=== PATIENT | male | born 1960 | race Caucasian/White ===

== ENCOUNTER 2017-06-06 19:58 | Emergency (ER) | payer OTHER ==
[2017-06-06] MEDS ORDERED: RINGERS SOLUTION,LACTATED 1,000 ML IV ONE (20:49)
[2017-06-06] MEDS ORDERED: ONDANSETRON HCL INJ/PF 4 MG/2 ML SDV IV ONE (20:49)
--- NOTE | 2017-06-06 20:51 | ER Document Report ---
ED Medical Screen (RME) - General Chief Complaint: Abdominal Pain Stated Complaint: POSSIBLE FOOD POISIONING Time Seen by Provider: 06/06/17 20:43 Notes: RME DISCLOSURE I have seen this patient as part of a Rapid Medical Evaluation and, if applicable, placed any initially appropriate orders. The patient will be seen and fully evaluated, including a full history and physical exam, by a provider ( in Main ED or Fast Track) when a room becomes available. 56-year-old male here with several days of abdominal pain, abdominal distention , nausea, diarrhea, and sweats. He has been trying to vomit however has had Lester fundoplication so he is unable to do so. He believes that he may have eaten something bad causing the symptoms however the rest of the family has been able to eat the same things without getting sick. He has no prior history of bowel obstruction. EXAM Moderate abdominal distention with diffuse tenderness Mild to moderate tachycardia, regular rhythm TRAVEL OUTSIDE OF THE [place] IN LAST 30 DAYS: No - Related Data Allergies/Adverse Reactions: No Known Allergies Allergy (Verified 06/06/17 20:42) Past Medical History - Social History Frequency of alcohol use: None Drug Abuse: None Endocrine Medical History: Reports: Hx Diabetes Mellitus Type 2 Renal/ Medical History: Reports: Hx Kidney Stones. Denies: Hx Peritoneal Dialysis Past Surgical History: Reports: Hx Orthopedic Surgery - Right Knee x3 Physical Exam - Vital signs Vitals: Temp Pulse Resp BP Pulse Ox 98.4 F 123 H 20 146/95 H 99 06/06/17 20:25 06/06/17 20:25 06/06/17 20:25 06/06/17 20:25 06/06/17 20:25 Course - Vital Signs Vital signs: Temp Pulse Resp BP Pulse Ox 98.4 F 123 H 20 146/95 H 99 06/06/17 20:25 06/06/17 20:25 06/06/17 20:25 06/06/17 20:25 06/06/17 20:25
[2017-06-06 21:20] LABS: ABSOLUTE EOSINOPHILS # (AUTO) 0.2 10^3/uL (0.0-0.6); ABSOLUTE LYMPHOCYTES (AUTO) 1.7 10^3/uL (0.5-4.7); ABSOLUTE MONOCYTES (AUTO) 0.8 10^3/uL (0.1-1.4); BASOPHILS % (AUTO) 0.3 % (0-2); EOSINOPHILS % (AUTO) 1.3 % (0-6); HEMATOCRIT 49.6 % (37.9-51.0); HEMOGLOBIN 16.6 g/dL (13.5-17.0); LYMPHOCYTES % (AUTO) 13.7 % (13-45); MEAN CORPUSCULAR HGB CONC 33.6 g/dL (32.0-36.0); MEAN CORPUSCULAR VOLUME 84 fl (80-97); MONOCYTES % (AUTO) 6.2 % (3-13); PLATELET COUNT 230 10^3/uL (150-450); RED BLOOD COUNT 5.94 10^6/uL (4.35-5.55); RED CELL DISTRIBUTION WIDTH 15.3 % (11.5-14.0); SEGMENTED NEUTROPHILS % (AUTO) 78.5 % (42-78); TOTAL CELLS COUNTED % (AUTO) 100 %; WHITE BLOOD COUNT 12.7 10^3/uL (4.0-10.5)
[2017-06-06 22:14] LABS: ALANINE AMINOTRANSFERASE 55 U/L (21-72); ALBUMIN 5.6 g/dL (3.5-5.0); ALKALINE PHOSPHATASE 99 U/L (38-126); ASPARTATE AMINO TRANSFERASE 42 U/L (17-59); BILIRUBIN,DIRECT 0.3 mg/dL (0.0-0.4); BILIRUBIN,TOTAL 1.2 mg/dL (0.2-1.3); BLOOD UREA NITROGEN 15 mg/dL (7-20); CALCIUM 10.8 mg/dL (8.4-10.2); GLUCOSE 213 mg/dL (75-110); LIPASE 86.7 U/L (23-300); TOTAL PROTEIN 9.7 g/dL (6.3-8.2)
[2017-06-06] MEDS ORDERED: MORPHINE SULFATE 10 MG/ML INJ IV ONE (22:15)
[2017-06-06 22:22] LABS: ANION GAP 18 (5-19); CARBON DIOXIDE 23 mmol/L (22-30); CHLORIDE 101 mmol/L (98-107); POTASSIUM 4.5 mmol/L (3.6-5.0); SODIUM 141.7 mmol/L (137-145)
[2017-06-06] MEDS ORDERED: FENTANYL CITRATE INJ/PF 100 MCG/2 ML AMPUL IV ONE (22:22)
--- NOTE | 2017-06-06 23:41 | ER Document Report ---
ED General - General Chief Complaint: Abdominal Pain Stated Complaint: POSSIBLE FOOD POISIONING Time Seen by Provider: 06/06/17 20:43 Notes: Patient is a 56-year-old male with a history of Lester fundoplication was performed 15 years ago at [facility]. This was performed some history of a large hiatal hernia. Patient says that over last several days he has had abdominal distention and has had the sensation of needing to vomit but cannot vomit because of the Lester. He says he is had some loose stools. No blood in the stool. No fevers. He denies similar symptoms in the past. Says he was told by [facility] a few years ago that he may need a revision of his Lester but he never had this performed. Patient does mention that approximately 5-6 days ago he did have an ablation of L3 through S1. He says he has had these nerve ablations in the past. He denies any loss of bowel control urinary retention following the ablation. TRAVEL OUTSIDE OF THE [place] IN LAST 30 DAYS: No - Related Data Allergies/Adverse Reactions: No Known Allergies Allergy (Verified 06/06/17 20:42) Past Medical History - Social History Smoking Status: Never Smoker Frequency of alcohol use: None Drug Abuse: None Family History: Reviewed & Not Pertinent Patient has suicidal ideation: No Patient has homicidal ideation: No Endocrine Medical History: Reports: Hx Diabetes Mellitus Type 2 Renal/ Medical History: Reports: Hx Kidney Stones. Denies: Hx Peritoneal Dialysis Past Surgical History: Reports: Hx Orthopedic Surgery - Right Knee x3 Review of Systems - Review of Systems Notes: My Normal Review Basic REVIEW OF SYSTEMS: CONSTITUTIONAL : Denies fever, chills, or sweats. Denies recent illness. EENT: Denies eye, ear, throat, or mouth pain or symptoms. Denies nasal or sinus congestion. CARDIOVASCULAR: Denies chest pain. RESPIRATORY: Denies cough, cold, or chest congestion. Denies shortness of breath, difficulty breathing, or wheezing. GASTROINTESTINAL: Diffuse abdominal pain. Nausea. GENITOURINARY: Denies difficulty urinating, painful urination, burning, frequency, or blood in urine. FEMALE GENITOURINARY: Denies vaginal bleeding, abnormal or irregular periods. LMP: MUSCULOSKELETAL: Denies neck or back pain or joint pain or swelling. SKIN: Denies rash or skin lesions. NEUROLOGICAL: Denies altered mental status or loss of consciousness. Denies headache. Denies weakness or paralysis or loss of use of either side. Denies problems with gait or speech. Denies sensory or motor loss. ALL OTHER SYSTEMS REVIEWED AND NEGATIVE. Physical Exam - Vital signs Vitals: Temp Pulse Resp BP Pulse Ox 98.4 F 123 H 20 146/95 H 99 06/06/17 20:25 06/06/17 20:25 06/06/17 20:25 06/06/17 20:25 06/06/17 20:25 - Notes Notes: General Appearance: Well nourished, alert, cooperative, no acute distress, mild to moderate obvious discomfort. Vitals: reviewed, See vital signs table. Head: no swelling or tenderness to the head Eyes: PERRL, EOMI, Conjuctiva clear Mouth: No decreasd moisture Throat: No tonsillar inflammation, No airway obstruction, No lymphadenopathy Neck: Supple, no neck tenderness Lungs: No wheezing, No rales, No rhonci, No accessory muscle use, good air exchange bilaterally. Heart: Cardiac rate, Regular rythm, No murmur, no rub Abdomen: Normal BS, soft, No rigidity, mild diffuse abdominal tenderness to palpation, No guarding, no rebound, no abdominal masses, no organomegaly. Abdomen appears slightly distended. Extremities: strength 5/5 in all extremities, good pulses in all extremities, no swelling or tenderness in the extremities, no edema. Skin: warm, dry, appropriate color, no rash Neuro: speech clear, oriented x 3, normal affect, responds appropriately to questions. Course - Re-evaluation Re-evalutation: 06/07/17 01:24 After the nausea medicine the patient says his symptoms are much improved now he feels very well. Clinically he looks very well. His abdomen is soft and now nontender to palpation. He did have a lipid distention which is now resolved. He was able to tolerate all the oral contrast and the CT scan was normal. Please patient is to see a general surgeon and he was following at [facility]. The surgeon left the neurosurgeons and was placed. I informed her make follow-up appointment with a surgeon regards to continue management following in regards to his Lester fundoplication surgery. I encouraged him follow-up his primary care doctor in 1-2 days for close reevaluation. Encourage him return to ER if he has worsening pain, recurrent nausea, fevers, or feels unwell. Patient agrees with plan will be discharged home. Dictation of this chart was performed using voice recognition software; therefore, there may be some unintended grammatical errors. - Vital Signs Vital signs: Temp Pulse Resp BP Pulse Ox 98.6 F 87 18 127/81 H 97 06/06/17 23:06 06/06/17 23:06 06/06/17 23:06 06/06/17 23:06 06/06/17 23:06 - Laboratory Result Diagrams: 06/06/17 20:55 06/06/17 20:55 Laboratory results interpreted by me: 06/06/17 06/06/17 20:55 20:55 WBC 12.7 H RBC 5.94 H RDW 15.3 H Seg Neutrophils % 78.5 H Absolute Neutrophils 10.0 H Glucose 213 H Calcium 10.8 H Total Protein 9.7 H Albumin 5.6 H Discharge - Discharge Clinical Impression: Nausea Abdominal pain Qualifiers: Abdominal location: generalized Qualified Code(s): R10.84 - Generalized abdominal pain Condition: Good Disposition: HOME, SELF-CARE Additional Instructions: ABDOMINAL PAIN: There are many causes of abdominal pain. Pain can mean a serious problem requiring surgery (such as appendicitis). It can also be an innocent problem that goes away on its own (such as a viral infection). Often, time must pass to determine the cause of pain. The physician does not feel that hospitalization is necessary, at present. Things may change within the next 24 hours. Call the doctor or come back for re- examination if any problems occur, such as: (1) Pain that becomes more severe, steady, or becomes concentrated in one specific area. Also, pain that is more severe with movement or coughing. (2) Vomiting that persists or becomes more frequent. (3) Blood in the vomitus, urine, or bowel movements. Blood in the stool may have a tarry or black appearance. (4) Shaking chills or fever greater than 100 degrees F. (5) The abdomen becomes more distended or swollen. (6) Bowel movements cease. (7) Failure to improve as expected. ANTINAUSEA MEDICATION: You have been given a medication to suppress nausea and vomiting. This type of medication can be given as a shot, pill, or suppository. It will usually last for many hours. Pills and shots usually last six to eight hours, suppositories last about 12 hours. For the typical illness, only one or two doses of the medication may be necessary. Mild lightheadedness may occur. This type of medicine can cause drowsiness. Do not drive or operate dangerous machinery while under its influence. Do not mix with alcohol. See your doctor at once if you have muscle spasms or tightness, or uncontrollable motions (particularly of the neck, mouth, or jaw). Persistent vomiting or severe lightheadedness should also be evaluated by the physician. FOLLOW-UP CARE: If you have been referred to a physician for follow-up care, call the physician s office for an appointment as you were instructed or within the next two days. If you experience worsening or a significant change in your symptoms, notify the physician immediately or return to the Emergency Department at any time for re-evaluation. Your CT scan of your abdomen did not show any concerning abnormalities. I have prescribed you some medicine for nausea. Please follow a liquid diet the next 24 hours. Than progress to a bland diet. Please avoid coffee and alcohol. [facility]. Call for a close follow up appointment. Follow up with you primary care doctor in 1-2 days for reevaluation. Please return to the ER immediately if you have recurrent nausea, worsening abdominal pain, fevers, or feel that you are worsening in any way. Prescriptions: Ondansetron [Zofran Odt 4 mg Tablet] 1 tab PO Q4H PRN #15 tab.rapdis PRN Reason: For Nausea/Vomiting Referrals: ANIBAL REICH MD [Primary Care Provider] - 06/08/17
--- NOTE | 2017-06-07 00:50 | RADIOLOGY REPORT (SQ) ---
EXAM DESCRIPTION: CT ABD/PELVIS WITH IV ORAL CLINICAL HISTORY: 56 years Male, abd distension, diarrhea, n/v; eval SBO colitis COMPARISON: 04.14.15 TECHNIQUE: 100 mL Isovue-370 IV contrast. Coronal and sagittal reformat. This exam was performed according to our departmental dose-optimization program, which includes automated exposure control, adjustment of the mA and/or kV according to patient size and/or use of iterative reconstruction technique. FINDINGS: No acute findings. No free fluid. No evidence of bowel or renal obstruction. Normal appendix. No CT evidence of colitis, as queried. 0.4 cm uncomplicated right renal stone. Small coronary artery calcification. Moderate gaseous distention of the stomach, nonspecific. Splenule. Moderate splenomegaly with splenic index of 1103, stable since 2014. Mild disc desiccation. Inferior thorax, liver, gallbladder, pancreas, adrenals, renal system, gastrointestinal tract, pelvic organs, lymphatics, vasculature, and musculoskeleton appear otherwise unremarkable. IMPRESSION: No acute findings. 0.4 cm uncomplicated right renal stone.
[2017-06-07] MEDS ORDERED: ONDANSETRON ODT 4 MG TAB (6 TAB/ER DISP) PO PRN (01:23)
[2017-06-07 01:34] VITALS: BP 135/87
== END 2017-06-07 01:36 | disposition home or self-care (01) ==
LOC: ER 19:58
DX: R10.84 Generalized abdominal pain (principal); R11.0 Nausea; R19.4 Change in bowel habit; R14.0 Abdominal distension (gaseous); E11.9 Type 2 diabetes mellitus without complications; Z98.890 Other specified postprocedural states; Z87.19 Personal history of other diseases of the digestive system
CPT/HCPCS: 99284; 96361; 96374; 96375; 36415; 83690; 85025; 80053; 74177; J3010; J2405; J7120

== ENCOUNTER 2017-07-19 05:34 | Inpatient (IN) | payer OTHER ==
[2017-07-19] MEDS ORDERED: ASPIRIN 81 MG TABLET, CHEWABLE PO ONE (05:48)
[2017-07-19] MEDS ORDERED: ONDANSETRON HCL INJ/PF 4 MG/2 ML SDV IV ONE ×2 (05:49→05:52)
[2017-07-19] MEDS ORDERED: NORMAL SALINE 1000 ML 1,000 ML IV ONE ×4 (05:50→10:02)
[2017-07-19] MEDS ORDERED: ONDANSETRON HCL INJ/PF 4 MG/2 ML SDV ONE (05:50)
[2017-07-19] MEDS ORDERED: MORPHINE SULFATE 10 MG/ML INJ IV ONE ×2 (05:52→08:03)
[2017-07-19] MEDS ORDERED: MORPHINE SULFATE 10 MG/ML INJ ONE ×2 (05:55→08:11)
[2017-07-19] MEDS ORDERED: PROCHLORPERAZINE EDISYLATE INJ 10 MG/2 ML VIAL IM ONE (06:08)
[2017-07-19 06:09] LABS: HEMATOCRIT 49.1 % (37.9-51.0); HEMOGLOBIN 16.4 g/dL (13.5-17.0); MEAN CORPUSCULAR HEMOGLOBIN 28.9 pg (27.0-33.4); MEAN CORPUSCULAR HGB CONC 33.4 g/dL (32.0-36.0); MEAN CORPUSCULAR VOLUME 87 fl (80-97); RED BLOOD COUNT 5.67 10^6/uL (4.35-5.55); RED CELL DISTRIBUTION WIDTH 15.5 % (11.5-14.0); WHITE BLOOD COUNT 24.2 10^3/uL (4.0-10.5)
[2017-07-19] MEDS ORDERED: PROCHLORPERAZINE EDISYLATE INJ 10 MG/2 ML VIAL ONE (06:10)
[2017-07-19 06:16] LABS: INTERNATIONAL RATION (INR) 0.94; PROTHROMBIN TIME 13.3 SEC (11.4-15.4)
[2017-07-19 06:23] LABS: ALANINE AMINOTRANSFERASE 38 U/L (21-72); ALBUMIN 5.3 g/dL (3.5-5.0); ALKALINE PHOSPHATASE 86 U/L (38-126); ASPARTATE AMINO TRANSFERASE 41 U/L (17-59); BILIRUBIN,DIRECT 0.6 mg/dL (0.0-0.4); BILIRUBIN,TOTAL 1.4 mg/dL (0.2-1.3); BLOOD UREA NITROGEN 16 mg/dL (7-20); CALCIUM 11.1 mg/dL (8.4-10.2); CHLORIDE 108 mmol/L (98-107); CREATINE KINASE 33 U/L (55-170); GLUCOSE 318 mg/dL (75-110); LIPASE 92.9 U/L (23-300); POTASSIUM 4.3 mmol/L (3.6-5.0); TOTAL PROTEIN 10.1 g/dL (6.3-8.2)
[2017-07-19 06:29] LABS: CARBON DIOXIDE 12 mmol/L (22-30); SODIUM 144.2 mmol/L (137-145)
[2017-07-19 06:32] LABS: ANION GAP 24 (5-19)
[2017-07-19 06:34] LABS: ABSOLUTE LYMPHOCYTES# (MANUAL) 3.6 10^3/uL (0.5-4.7); ABSOLUTE MONOCYTES # (MANUAL) 1.2 10^3/uL (0.1-1.4); ABSOLUTE NEUTROPHILS# (MANUAL) 19.4 10^3/uL (1.7-8.2); BASOPHILS % (MANUAL) 0 % (0-2); EOSINOPHILS % (MANUAL) 0 % (0-6); LYMPHOCYTES % (MANUAL) 15 % (13-45); MONOCYTES % (MANUAL) 5 % (3-13); SEGMENTED NEUTROPHILS % (MAN) 80 % (42-78); TOTAL CELLS COUNTED 100
[2017-07-19 06:36] LABS: ANISOCYTOSIS SLIGHT; OVALOCYTES SLIGHT; PLATELET CLUMPS PRESENT; PLATELET COMMENT ADEQUATE; POIKILOCYTOSIS SLIGHT; TOXIC GRANULATION SLIGHT
[2017-07-19 06:37] LABS: PLATELET COUNT 331 10^3/uL (150-450)
[2017-07-19 06:38] LABS: CREATINE KINASE MB 0.25 ng/mL (<4.55); TROPONIN I < 0.012 ng/mL
[2017-07-19] MEDS ORDERED: PIPERACILLIN/TAZOBACTAM 4.5 GM VIAL IV ONE (06:42)
[2017-07-19] MEDS ORDERED: VANCOMYCIN HCL INJ 1000 MG VIAL IV ONE (06:42)
[2017-07-19] MEDS ORDERED: METOCLOPRAMIDE HCL INJ/PF 10 MG/2 ML SDV IV ONE (07:03)
[2017-07-19] MEDS ORDERED: NORMAL SALINE 1000 ML 1,000 ML IV PRN (07:16)
--- NOTE | 2017-07-19 07:28 | RADIOLOGY REPORT (SQ) ---
EXAM DESCRIPTION: CT ABD/PELVIS WITH IV ONLY CLINICAL HISTORY: 56 years Male, Pt presents with nausea and diarrhea. approx 10 episodes of diarrhea COMPARISON: 06.06.17 TECHNIQUE: 97 mL Isovue-370 contrast. Coronal and sagittal reformat. This exam was performed according to our departmental dose-optimization program, which includes automated exposure control, adjustment of the mA and/or kV according to patient size and/or use of iterative reconstruction technique. FINDINGS: 3.3 cm diameter dilation of small bowel loops with air-fluid levels and some stacking. Nondistended ileum and nondistended large bowel. Zone of transition not identified. No free fluid/air. Mild retroperitoneal lymphadenopathy. 31 cm nonspecific gaseous gastric distention. 0.5 cm uncomplicated right renal stone. Small atelectasis or scar of the right lower lobe. Hydropic gallbladder. Mild L5-S1 disc desiccation. Inferior thorax, liver, pancreas, spleen, adrenals, renal system, pelvic organs, vasculature, and musculoskeleton appear otherwise unremarkable. IMPRESSION: 3.3 cm diameter low grade jejunal small bowel obstruction or ileus.
--- NOTE | 2017-07-19 07:31 | ER Document Report ---
ED General - General Chief Complaint: Nausea/Vomiting/Diarrhea Stated Complaint: NAUSEA/DIARRHEA Time Seen by Provider: 07/19/17 06:08 Mode of Arrival: Ambulatory TRAVEL OUTSIDE OF THE [place] IN LAST 30 DAYS: No - HPI Patient complains to provider of: Abdominal pain Onset: Just prior to arrival Onset/Duration: Sudden, Persistent Quality of pain: Cramping, Sharp Severity: Severe Pain Level: 5 Associated symptoms: Nausea, Vomiting. denies: None, Allergy/hay fever, Body/ muscle aches, Chest pain, Chills, Nonproductive cough, Productive cough, Diarrhea, Drooling, Earache, Fever, Headache, Hoarseness, Hurts to breath, Leg swelling, Rhinnorhea, Sinus pain/drainage, Shortness of breath, Slow to respond , Sore throat, Sweating, Weakness, Other Exacerbated by: denies: Denies, Supine, Sitting, Standing, Movement, Walking, Coughing, Deep breathing, Food, Other Relieved by: denies: Denies, Supine, Sitting, Standing, Remaining still, Antacids, Food, Other Similar symptoms previously: No Recently seen / treated by doctor: No - Related Data Allergies/Adverse Reactions: No Known Allergies Allergy (Verified 07/19/17 05:35) Past Medical History - General Information source: Patient - Social History Smoking Status: Never Smoker Cigarette use (# per day): No Chew tobacco use (# tins/day): No Frequency of alcohol use: Rare Drug Abuse: None Lives with: Family Family History: Reviewed & Not Pertinent Patient has suicidal ideation: No Patient has homicidal ideation: No - Past Medical History Cardiac Medical History: Denies: None, Hx Atrial Fibrillation, Hx Congestive Heart Failure, Hx Coronary Artery Disease, Hx DVT, Hx Heart Attack, Hx Hypercholesterolemia, Hx Hypertension, Hx Peripheral Vascular Disease, Hx Pulmonary Embolism, Hx Heart Murmur, Other Pulmonary Medical History: Denies: None, Hx Asthma, Hx Bronchitis, Hx COPD, Hx Pneumonia, Hx Intubation , Hx Respiratory Failure, Hx Sleep Apnea, Hx Tuberculosis, Other EENT Medical History: Denies: None, Eyes, Ears, Nose, Throat, Other Neurological Medical History: Denies: None, Hx Cerebrovascular Accident, Hx Migraine, Hx Seizures, Other Endocrine Medical History: Reports: Hx Diabetes Mellitus Type 2. Denies: None, Hx Diabetes Mellitus Type 1, Hx Graves' Disease, Hx Hyperthyroidism, Hx Hypothyroidism, Other Renal/ Medical History: Reports: Hx Kidney Stones Malignancy Medical History: Denies None, Denies Hx Bone Cancer, Denies Hx Brain Cancer, Denies Hx Colorectal Cancer, Denies Hx Leukemia, Denies Hx Liver Cancer , Denies Hx Lung Cancer, Denies Hx Lymphoma, Denies Hx Pancreatic Cancer, Denies Hx Prostate Cancer, Denies Hx Renal (Kidney) Cancer, Denies Hx Skin Cancer, Denies Hx Testicular Cancer, Denies Other Musculoskeltal Medical History: Denies None, Denies Hx Arthritis, Denies Hx Fibromyalgia, Denies Hx Gout, Denies Hx Multiple Sclerosis, Denies Hx Muscular Dystrophy, Denies Hx Muscle Spasm, Denies Hx Muscle Weakness, Denies Hx Musculoskeletal Deformity, Denies Hx Musculoskeletal Trauma, Denies Hx Myositis , Denies Hx Restless Leg Syndrome, Denies Other Past Surgical History: Reports: Hx Orthopedic Surgery - Right Knee x3 Review of Systems - Review of Systems Constitutional: Weakness. denies: No symptoms reported, See HPI, Chills, Diaphoresis, Fever, Malaise, Other, Weight gain, Weight loss, Recent illness EENT: denies: No symptoms reported, See HPI, Eye pain, Eye discharge, Blurred vision, Tearing, Double vision, Ear pain, Ear discharge, Nose pain, Nose congestion, Nose discharge, Sinus pressure, Sinus discharge, Throat pain, Difficulty swallowing, Throat swelling, Mouth pain, Mouth swelling, Dental problem, Vertigo, Other Cardiovascular: denies: No symptoms reported, See HPI, Chest pain, Palpitations , Heart racing, Orthopnea, Dyspnea, Syncope, Dizziness, Lightheaded, Edema, Other, Paroxysmal Nocturnal Dysp Respiratory: denies: No symptoms reported, See HPI, Cough, Hurts to breathe, Hemoptysis, Short of breath, Sputum, Stridor, Wheezing, Other Gastrointestinal: Abdomen distended, Abdominal pain. denies: No symptoms reported, See HPI, Diarrhea, Nausea, Vomiting, Constipation, Blood streaked bowels, Poor appetite, Poor fluid intake, Blood in vomit, Black stools, Rectal bleeding, Last bowel movement, Fecal incontinence, Other Genitourinary: denies: No symptoms reported, See HPI, Burning, Dysuria, Discharge, Frequency, Flank pain, Hematuria, Incontinence, Pain, Urgency, Retention, Other Physical Exam - Vital signs Vitals: Pulse Resp BP Pulse Ox 154 H 22 H 158/113 H 96 07/19/17 05:39 07/19/17 05:39 07/19/17 05:39 07/19/17 05:39 - General General appearance: Alert In distress: Severe - HEENT Head: No: Normocephalic, Atraumatic, Abrasions, Spencer's sign, Ecchymosis, Open wounds, Racoon's eyes, Tenderness, Other Eyes: Normal. No: Pale conjunctiva, Periorbital ecchymosis, Periorbital edema, Scleral icterus, Tears, Other Conjunctiva: No: Normal, Icteric, Injected, Purulent discharge, Other Cornea: No: Normal, Corneal abrasion, Corneal ulcer, Dendrite, Embedded foreign body, Flourescein stain uptake, Opacified, Superficial foreign body, Other Eyelashes: No: Normal, Matted, Singed, Other Pupils: No: PERRL, Dilated, Fixed, Pinpoint Anterior chamber: No: Normal, Hyphema, Other Ears: No: Normal, Ecchymosis, Pinna laceration, Pinna tenderness, Tragus laceration, Tragus tenderness, Other External canal: No: Normal, Blood in canal, Cerumen impaction, Erythema, Foreign body, Swollen, Other Tympanic membrane: No: Normal, Bulging, Hemotympanum, Injected, Loss of landmarks, Perforation, Purulent effusion, Retracted, Serous effusion, Other Hearing loss: No: Left, Right, Conduction loss, Sensorineural loss Sinus: No: Normal, Abnormal, Frontal, Mastoid, Maxillary, Redness, Swelling, Tenderness, Other Mouth/Lips: No: Normal, Angioedema, Caries, Dental fracture, Laceration, Lesions , Other Pharynx: No: Normal, Blood in hypopharynx, Erythema, Exudate, Peritonsillar abscess, Post nasal drainage, Retropharyngeal abscess, Tonsillar hypertrophy, Uvular edema, Potential airway comprom., Other Neck: No: Normal, Anterior cervical chain, Posterior cervical chain, Brudzinski , Carotid bruit, Kernig's, Lymphadenopathy, Meningismus, Neck mass, Shotty nodes , Subcutaneous emphysema, Supple, Thyroid nodule, Thyromegally, Other - Respiratory Respiratory status: No: No respiratory distress, Respiratory distress, Agonal respirations, Cyanosis, Depressed respirations, Labored, Pursed lip breathing, Retractions, Tachypnea, Tripod position, Other Chest status: No: Nontender, Tender, Chest mass, Ecchymosis, No pleuritic chest pain, Pain on movement, Pain with cough, Pain with deep breathing, Wounds, Accessory muscle use, Prolonged expirations, Splinting, Other Breath sounds: No: Normal, Decreased air movement, Nonproductive cough, Productive cough, Rales, Rhonchi, Stridor, Wheezing, Other Chest palpation: No: Normal, Flail segment, [place] frothy sputum, Purulent sputum , Subcutaneous emphysema, Sucking chest wound, Tender, Ecchymosis, Wounds, Other - Cardiovascular Rhythm: Regular. No: Irregularly irregular, Extrasystoles, Tachycardia, Bradycardia, Other Gallop: No: None auscultated, S3 gallop, S4 gallop - Abdominal Inspection: Obese Distension: Distended Bowel sounds: Absent Tenderness: Tender, Guarding Organomegaly: No: No organomegaly, Hepatomegaly, Splenomegaly, Mass, Other - Genitourinary Inspection: No: Normal, Blood at meatus, Penile discharge, Other Tenderness: No: Nontender, Lesions, Testicle tender, Epididymis tender, Other Cremasteric reflex: No: Normal, Right reflex absent, Left reflex absent - Extremities General upper extremity: Normal inspection - Neurological Neuro grossly intact: Yes Orientation: AAOx4 Speech: Normal Cranial nerves: Normal Babinski reflex: Normal (flexor plantar) Course - Re-evaluation Re-evalutation: 07/19/17 07:35 Surgen filteration operator was contacted,CT done. Septic protocol followed. - Vital Signs Vital signs: Temp Pulse Resp BP Pulse Ox 98.6 F 169 H 18 122/86 H 94 07/19/17 07:56 07/19/17 08:33 07/19/17 08:33 07/19/17 08:33 07/19/17 08:33 - Laboratory Result Diagrams: 07/19/17 05:54 07/19/17 05:54 Laboratory results interpreted by me: 07/19/17 07/19/17 07/19/17 05:54 05:54 05:54 WBC 24.2 H RBC 5.67 H RDW 15.5 H Seg Neuts % (Manual) 80 H Abs Neuts (Manual) 19.4 H Chloride 108 H Carbon Dioxide 12 L Anion Gap 24 H Glucose 318 H Lactic Acid 6.1 H Calcium 11.1 H Total Bilirubin 1.4 H Direct Bilirubin 0.6 H Creatine Kinase 33 L Total Protein 10.1 H Albumin 5.3 H - Diagnostic Test Radiology reviewed: Reports reviewed - Abdominal CT reported by radiologist as 3.2 cm ileal obstruction. - EKG Interpretation by [place] EKG shows normal: Sinus rhythm Rate: Tachycardia - Sinus tach at 122 bpm normal axis no acute ST elevation ST depression T-wave inversion noted. Critical Care Note - Critical Care Note Total time excluding time spent on procedures (mins): 60 Comments: sepsis Discharge - Discharge Clinical Impression: Acute abdomen Sepsis Qualifiers: Sepsis type: sepsis due to unspecified organism Qualified Code(s): A41.9 - Sepsis, unspecified organism Disposition: ADMITTED INPATIENT Admitting Provider: Surgicalist Unit Admitted: Surgical Floor
[2017-07-19] MEDS: NORMAL SALINE 1000 ML 1,000 ML IV PRN ×4 (07:32→20:42)
[2017-07-19] MEDS ORDERED: HYDROMORPHONE HCL INJ/PF 2 MG/ML AMPULE IV ONE (07:52)
--- NOTE | 2017-07-19 08:04 | EKG REPORT ---
SEVERITY:- ABNORMAL ECG - SINUS TACHYCARDIA NONSPECIFIC T ABNORMALITIES, INFERIOR LEADS : Confirmed by: Last Ashraf MD 19-Jul-2017 08:03:58
[2017-07-19] MEDS ORDERED: DEXTROSE 40% GEL 15 GM TUBE PO PRN ×4 (09:43→12:09)
[2017-07-19] MEDS ORDERED: DEXTROSE 50%-WATER 25 GM/50 ML DISP.SYRIN IV PRN ×4 (09:43→12:09)
[2017-07-19] MEDS ORDERED: GLUCAGON,HUMAN RECOMB 1 MG INJ SUBCUT PRN (09:43)
[2017-07-19] MEDS ORDERED: ONDANSETRON HCL INJ/PF 4 MG/2 ML SDV IV PRN ×2 (09:43→09:54)
[2017-07-19] MEDS ORDERED: PHARMACY COMMUNICATION ORDER MC NR (09:45)
[2017-07-19] MEDS: FAMOTIDINE INJ/PF 20 MG/2 ML SDV IV SCH ×2 (10:05→22:26)
[2017-07-19] MEDS ORDERED: INFLUENZA ADLT QUAD (36MOS+) 2017-18 VAC 0.5 ML SYR IM PRN (11:53)
[2017-07-19] MEDS ORDERED: INSULIN LISPRO 100 UNIT/ML 3 ML VIAL SUBCUT PRN (12:09)
[2017-07-19] MEDS ORDERED: GLUCAGON,HUMAN RECOMB 1 MG INJ IM PRN (12:09)
--- NOTE | 2017-07-19 12:21 | PDOC CONSULTATION ---
Consultation Consult Date: 07/19/17 Attending physician:: ANIBAL REICH Consult reason:: Atrial fibrillation History of Present Illness Admission Date/PCP: 07/19/17 08:05 Patient complains of: Palpitations and abdominal discomfort History of Present Illness: GILBERT MORA JR is a 56 year old male, who was admitted through the emergency department having presented with abdominal pain associated with nausea and vomiting. Patient denied any cardiac related symptoms but does give history of heart murmur and sleep apnea syndrome. Patient while being monitored in the ER was noted to go into atrial fibrillation with rapid ventricular response. However shortly thereafter he converted spontaneously to sinus rhythm. Abdomen asked to evaluate patient because of this atrial fibrillation. Patient claims to be fairly active. He does describe history of Ady fundoplication surgery in the past. He denies any prior history of acute abdomen. Past Medical History Cardiac Medical History: Denies: None, Atrial Fibrillation, Congestive Heart Failure, Coronary Artery Disease, DVT, Myocardial Infarction, Hyperlipidema, Hypertension, Peripheral Vascular Disease, Pulmonary Embolism, Heart Murmur, Other Pulmonary Medical History: Denies: None, Asthma, Bronchitis, Chronic Obstructive Pulmonary Disease (COPD ), Intubation, Pneumonia, Respiratory Failure, Sleep Apnea, Tuberculosis, Other EENT Medical History: Denies: None, Eyes, Ears, Nose, Throat Neurological Medical History: Denies: None, Migraine, Seizures, Other Endocrine Medical History: Reports: Diabetes Mellitus Type 2 Denies: None, Diabetes Mellitus Type 1, Hyperthyroidism, Hypothyroidism, Other Malignancy Medical History: Denies: None, Bone Cancer, Brain Cancer, Colorectal Cancer, Leukemia, Liver Cancer, Lung Cancer, Lymphoma, Pancreatic Cancer, Renal (Kidney) Cancer, Skin Cancer, Other Musculoskeltal Medical History: Denies: None, Arthritis, Fibromyalgia, Gout, Other Past Surgical History Past Surgical History: Reports: Orthopedic Surgery - Right Knee x3 Social History Information Source: Patient Lives with: Family Smoking Status: Current Some Day Smoker Cigars Per Day: 1 Frequency of Alcohol Use: Social Hx Recreational Drug Use: No Drugs: None Hx Prescription Drug Abuse: No - Advance Directive Resuscitation Status: Full Code Surrogate healthcare decision maker:: Patient's is the surrogate decision-maker Family History Family History: Hypertension Parental Family History Reviewed: Yes Children Family History Reviewed: Yes Sibling(s) Family History Reviewed.: Yes Medication/Allergy Home Medications: Cyclobenzaprine HCl [Flexeril 10 mg Tablet] 10 mg PO DAILYP PRN 07/19/17 Empagliflozin [Jardiance] 25 mg PO QAM 07/19/17 Escitalopram Oxalate [Lexapro 10 mg Tablet] 10 mg PO DAILY 07/19/17 Exenatide Microspheres [Bydureon Pen] 2 mg SQ MO@1000 07/19/17 Ezetimibe [Zetia 10 mg Tablet] 10 mg PO DAILY 07/19/17 Levocetirizine Dihydrochloride [Xyzal] 5 mg PO DAILY 07/19/17 Levothyroxine Sodium [Synthroid 0.075 mg Tablet] 0.075 mg PO Q6AM 07/19/17 Metformin HCl [Glucophage XR 500 mg Tablet] 1,000 mg PO BIDBS 07/19/17 Rabeprazole Sodium [Aciphex] 20 mg PO QAM 07/19/17 Ramipril [Altace] 5 mg PO DAILY 07/19/17 Sildenafil Citrate [Viagra] 50 mg PO ASDIR PRN 07/19/17 Valacyclovir HCl [Valtrex] 500 mg PO DAILYP PRN 07/19/17 Allergies/Adverse Reactions: No Known Allergies Allergy (Verified 07/19/17 05:35) Review of Systems Review of Systems: Please see history of present illness and past medical history as wall. Constitutional: No fever or chills reported. Head : No recent chronic headaches, recent head injury. Eyes: No recent eye pain, diplopia, redness, discharge, acute visual changes. Ears: No recent chronic ear pain, acute hearing loss, ear discharge. Oral cavity: No recent ulcerations, bleeding, oral cavity discomfort. Neck: No recent acute neck pain reported. Hematologic: No recent easy bruising or bleeding or hematologic malignancy reported. Lymphatic: No recent lymphatic malignancy, chronic lymphadenopathy reported yet Cardiovascular system review: See history of present illness. Respiratory system review: No recent chronic cough, hemoptysis, blood clots in the lungs reported. Mild Shortness of breath on exertion Gastrointestinal system review: Acute abdominal pain with associated nausea and vomiting but denies hematemesis, melena. Genitourinary system review: No recent acute or chronic hematuria, flank pain, UTI etc. reported. Skin system review: Negative for any recent abnormal bruising, no rash, no pruritus reported. Neurologic: No prior history of strokes, mini strokes, seizure disorder. Psychologic: No history of major psychosis or major depression reported. Musculoskeletal: Minor aches and pains reported. No acute joint swelling reported. Endocrine: No recent polyuria, polydipsia, recent heat or cold intolerance. Physical Exam Vital Signs: Temp Pulse Resp BP Pulse Ox 97.8 F 101 H 18 114/77 96 07/19/17 11:21 07/19/17 11:21 07/19/17 11:21 07/19/17 11:21 07/19/17 11:21 Intake & Output 07/18/17 07/19/17 07/20/17 06:59 06:59 06:59 Output Total 475 Balance -475 Weight 94.3 kg Exam: GENERAL: well-nourished and in no acute distress. Alert and oriented x3 HEAD: Atraumatic, normocephalic. EYES: Pupils equal round and reactive to light, extraocular movements intact, sclera anicteric, conjunctiva are normal. ENT: TMs normal, nares patent, oropharynx clear without exudates. Moist mucous membranes. No oral ulcerations or bleeding gums noted NECK: supple without lymphadenopathy. Trachea is central. No cervical or axillary lymphadenopathy noted. Carotids are 2+, JVD WNL LUNGS: Respiration seems nonlabored, no significant accessory muscle action noted. Breath sounds clear to auscultation bilaterally and equal noted. No wheezes rales or rhonchi noted. No significant dullness noted on percussion. CHEST: Palpation of the chest wall shows no significant chest wall tenderness. No other significant abnormalities noted. 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 ABDOMEN: Abdomen is distended, somewhat, bowel sounds hypoactive. Patient has NG tube suctioning ongoing. EXTREMITIES: Pedal pulses are 1-2+, no calf tenderness noted. No clubbing or cyanosis. Negative pedal edema noted NEUROLOGICAL: Focused neurological exam showed no significant neurologic deficit. Normal speech, no focal weakness appreciated. PSYCH: Normal mood, normal affect. Judgment and insight within normal limits. SKIN: No significant ecchymosis, skin is noted to be warm. MUSCULOSKELETAL EXAM: No significant acute joint swelling noted. Results Laboratory Results: 07/19/17 09:55 Lactic Acid 3.2 H 07/19/17 09:55 Troponin I < 0.012 EKG Comments: EKG in the [facility] shows sinus tachycardia. Other EKG does show atrial fibrillation with rapid ventricular response. No acute ST-T wave changes are noted. Impressions: Abdomen/Pelvis CT 07/19/17 06:09 IMPRESSION: 3.3 cm diameter low grade jejunal small bowel obstruction or ileus. 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 use: unspecified middle or intermediate school principal insulin use status Diabetes mellitus complication status : without complication Qualified Code(s): E11.9 - Type 2 diabetes mellitus without complications Is this a current diagnosis for this admission?: Yes (5) Sleep apnea syndrome Qualifiers: Sleep apnea type: unspecified type Qualified Code(s): G47.30 - Sleep apnea , unspecified Is this a current diagnosis for this admission?: Yes (6) Gastroesophageal reflux disease Qualifiers: Esophagitis presence: esophagitis presence not specified Qualified Code(s) : K21.9 - Gastro-esophageal reflux disease without esophagitis Is this a current diagnosis for this admission?: Yes (7) Hyperlipidemia Qualifiers: Hyperlipidemia type: unspecified Qualified Code(s): E78.5 - Hyperlipidemia , unspecified Is this a current diagnosis for this admission?: Yes - Notes Notes: Atrial fibrillation with rapid ventricular response: This happened in the setting of acute abdomen. Do not feel chronic and anticoagulation is indicated. At this point will recommend IV metoprolol succinate 5 mg every 6 hours [id number] and as needed every hour as needed for heart rate control and preventing patient from going back into atrial fibrillation. Feel that atrial fibrillation could have been precipitated by stress although patient is at risk for it because of sleep apnea syndrome, hypertension and obesity. A 2D echo has been ordered for further evaluation and risk stratification. Acute abdomen: Management plans are being left to the surgeon. Hypertension: Blood pressure is reasonably well controlled. 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 Gastroesophageal reflux: Patient gives a history of it. Recommend IV proton pump inhibitor. Dyslipidemia: Continue ezetimibe when allowed to p.o. Patient cleared for surgery from cardiac standpoint at this point as patient has no significant EKG changes of ischemic nature. Patient also not in CHF. And patient noted to be fairly active prior to his acute episode. - Time Time Spent: 30 to 50 Minutes - CODE STATUS was discussed, patient remains full code. Surrogate decision-maker Patient spouse. Multiple medical problems were addressed. More than 50% of the time spent coordinating care, discussing management plans with involved caregivers. Management plans discussed with involved personnels. Medical decision making was of moderate to high complexity , patient's has multiple comorbidities. Medications reviewed and adjusted accordingly: Yes
[2017-07-19] MEDS: MORPHINE SULFATE 10 MG/ML INJ IV PRN ×3 (12:49→20:37)
[2017-07-19] MEDS ORDERED: PHENOL/SODIUM PHENOLATE 100 SPRAY/177 ML BOTTLE PO PRN (13:04)
--- NOTE | 2017-07-19 13:15 | RADIOLOGY REPORT (SQ) ---
EXAM DESCRIPTION: KUB/ABDOMEN (SINGLE VIEW) COMPLETED DATE/TIME: 07/19/2017 12:55 pm REASON FOR STUDY: NG Tube Placement COMPARISON: CT abdomen pelvis 07/19/2017, 06/07/2017 Hepatobiliary scan 03/05/2007 NUMBER OF VIEWS: One view. TECHNIQUE: Supine radiographic image of the abdomen acquired. LIMITATIONS: None. FINDINGS: BOWEL GAS PATTERN: Nasogastric tube tip and side port in the stomach. Food in the stomach fundus. Air in nondistended colon and mildly distended mid abdominal small bowel loops, abnormal bu t nonspecific bowel gas pattern. CALCIFICATIONS: No suspicious calcifications. SOFT TISSUES: No gross mass or suggestion of organomegaly. HARDWARE: Nasogastric tube tip and side port in the stomach. BONES: Degenerative changes lower lumbar spine OTHER: There is IV contrast in the bladder from CT abdomen and pelvis exam 0647 hours IMPRESSION: Nonspecific bowel gas pattern TECHNICAL DOCUMENTATION: JOB ID: [id number] [employer]- All Rights Reserved Reading location - IP/workstation name: [email or web address]
--- NOTE | 2017-07-19 13:18 | PDOC CONSULTATION ---
Consultation Attending physician:: SURGICAL SURGICALIST MD Consult reason:: For medical management History of Present Illness Admission Date/PCP: 07/19/17 08:05 Patient complains of: Abdominal pain History of Present Illness: GILBERT MORA JR is a 56 year old male, who was admitted through the emergency department having presented with abdominal pain associated with nausea and vomiting. Patient denied any cardiac related symptoms but does give history of heart murmur and sleep apnea syndrome. Patient while being monitored in the ER was noted to go into atrial fibrillation with rapid ventricular response. However shortly thereafter he converted spontaneously to sinus rhythm. Abdomen asked to evaluate patient because of this atrial fibrillation. Patient claims to be fairly active. He does describe history of Ady fundoplication surgery in the past. He denies any prior history of acute abdomen. Patient have a history of the Lester fundoplication's procedures done several years back and status post after that hernia repair was done Patient's - ICU patient is comfortable laying in bed denied any abdominal pain no nausea no vomiting's only concern about this NG tube is bothering him Patient's abdomen was very distended according to the patient's last night and the patient was complaining for itching nausea and vomiting and patient was short of breath due to the recommendations that all currently resolved after the NG tube Patient's currently a type 2 diabetes and history of the hypothyroidism and history of the depression and anxiety currently all stable Patient's denied any heart problems Past Medical History Cardiac Medical History: Reports: Hyperlipidema, Hypertension Denies: None, Atrial Fibrillation, Congestive Heart Failure, Coronary Artery Disease, DVT, Myocardial Infarction, Peripheral Vascular Disease, Pulmonary Embolism, Heart Murmur, Other Pulmonary Medical History: Denies: None, Asthma, Bronchitis, Chronic Obstructive Pulmonary Disease (COPD ), Intubation, Pneumonia, Respiratory Failure, Sleep Apnea, Tuberculosis, Other EENT Medical History: Denies: None, Eyes, Ears, Nose, Throat Neurological Medical History: Denies: None, Migraine, Seizures, Other Endocrine Medical History: Reports: Diabetes Mellitus Type 2 Denies: None, Diabetes Mellitus Type 1, Hyperthyroidism, Hypothyroidism, Other Malignancy Medical History: Denies: None, Bone Cancer, Brain Cancer, Colorectal Cancer, Leukemia, Liver Cancer, Lung Cancer, Lymphoma, Pancreatic Cancer, Renal (Kidney) Cancer, Skin Cancer, Other GI Medical History: Reports: Gastroesophageal Reflux Disease Musculoskeltal Medical History: Denies: None, Arthritis, Fibromyalgia, Gout, Other Psychiatric Medical History: Reports: Depression, General Anxiety Disorder Past Surgical History Past Surgical History: Reports: Orthopedic Surgery - Right Knee x3, Other - Fundoplication Incisional hernia repair Social History Lives with: Family Smoking Status: Current Some Day Smoker Cigars Per Day: 1 Frequency of Alcohol Use: Social Hx Recreational Drug Use: No Drugs: None Hx Prescription Drug Abuse: No - Advance Directive Resuscitation Status: Full Code Family History Family History: Reviewed & Not Pertinent, Hypertension Parental Family History Reviewed: Yes Children Family History Reviewed: Yes Sibling(s) Family History Reviewed.: Yes Medication/Allergy Home Medications: Cyclobenzaprine HCl [Flexeril 10 mg Tablet] 10 mg PO DAILYP PRN 07/19/17 Empagliflozin [Jardiance] 25 mg PO QAM 07/19/17 Escitalopram Oxalate [Lexapro 10 mg Tablet] 10 mg PO DAILY 07/19/17 Exenatide Microspheres [Bydureon Pen] 2 mg SQ MO@1000 07/19/17 Ezetimibe [Zetia 10 mg Tablet] 10 mg PO DAILY 07/19/17 Levocetirizine Dihydrochloride [Xyzal] 5 mg PO DAILY 07/19/17 Levothyroxine Sodium [Synthroid 0.075 mg Tablet] 0.075 mg PO Q6AM 07/19/17 Metformin HCl [Glucophage XR 500 mg Tablet] 1,000 mg PO BIDBS 07/19/17 Rabeprazole Sodium [Aciphex] 20 mg PO QAM 07/19/17 Ramipril [Altace] 5 mg PO DAILY 07/19/17 Sildenafil Citrate [Viagra] 50 mg PO ASDIR PRN 07/19/17 Valacyclovir HCl [Valtrex] 500 mg PO DAILYP PRN 07/19/17 Allergies/Adverse Reactions: No Known Allergies Allergy (Verified 07/19/17 05:35) Review of Systems All systems: reviewed and no additional remarkable complaints except as stated Physical Exam Vital Signs: Temp Pulse Resp BP Pulse Ox 97.8 F 101 H 18 114/77 96 07/19/17 11:21 07/19/17 11:21 07/19/17 11:21 07/19/17 11:21 07/19/17 11:21 Intake & Output 07/18/17 07/19/17 07/20/17 06:59 06:59 06:59 Output Total 475 Balance -475 Weight 94.3 kg General appearance: PRESENT: no acute distress, well-developed, well-nourished Head exam: PRESENT: atraumatic, normocephalic Eye exam: PRESENT: conjunctiva pink, EOMI, PERRLA. ABSENT: scleral icterus Ear exam: PRESENT: normal external ear exam Mouth exam: PRESENT: moist, tongue midline Neck exam: PRESENT: full ROM. ABSENT: carotid bruit, JVD, lymphadenopathy, thyromegaly Respiratory exam: PRESENT: clear to auscultation [place] Cardiovascular exam: PRESENT: RRR. ABSENT: diastolic murmur, rubs, systolic murmur Pulses: PRESENT: normal dorsalis pedis pul, +2 pedal pulses bilateral Vascular exam: PRESENT: normal capillary refill GI/Abdominal exam: PRESENT: hypoactive bowel sounds, soft. ABSENT: distended, guarding, mass, organolmegaly, rebound, tenderness Rectal exam: PRESENT: deferred Extremities exam: ABSENT: pedal edema Musculoskeletal exam: PRESENT: ambulatory Neurological exam: PRESENT: alert, awake, oriented to person, oriented to place , oriented to time, oriented to situation, CN II-XII grossly intact. ABSENT: motor sensory deficit Psychiatric exam: PRESENT: appropriate affect, normal mood. ABSENT: homicidal ideation, suicidal ideation Skin exam: PRESENT: dry, intact, warm. ABSENT: cyanosis, rash Results Laboratory Results: 07/19/17 09:55 Lactic Acid 3.2 H 07/19/17 09:55 Troponin I < 0.012 Impressions: Abdomen/Pelvis CT 07/19/17 06:09 IMPRESSION: 3.3 cm diameter low grade jejunal small bowel obstruction or ileus. Assessment & Plan - Diagnosis (1) Sepsis Qualifiers: Sepsis type: sepsis due to unspecified organism Qualified Code(s): A41.9 - Sepsis, unspecified organism Is this a current diagnosis for this admission?: Yes Plan: Continues to broad-spectrum IV antibiotic continues IV fluid and await for the culture and follow with the surgery (2) Acute abdomen Is this a current diagnosis for this admission?: Yes Plan: Currently much better with the possible obstructions follow with the surgery (3) Atrial fibrillation with rapid ventricular response Is this a current diagnosis for this admission?: Yes Plan: Patient is currently in a sinus rhythms breast per discussed with the cardiology of a transient episode of A. 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 medications any use sliding scale (5) Gastroesophageal reflux disease Qualifiers: Esophagitis presence: esophagitis presence not specified Qualified Code(s) : K21.9 - Gastro-esophageal reflux disease without esophagitis Is this a current diagnosis for this admission?: Yes Plan: We will put the Protonix 40 mg IV twice a day (6) Hyperlipidemia Qualifiers: Hyperlipidemia type: unspecified Qualified Code(s): E78.5 - Hyperlipidemia , unspecified Is this a current diagnosis for this admission?: Yes Plan: Currently hold the Zetia (7) Hypertension Qualifiers: Hypertension type: essential hypertension Qualified Code(s): I10 - Essential (primary) hypertension Is this a current diagnosis for this admission?: Yes Plan: Currently stable hold the blood pressure medications due to the sepsis (8) Sleep apnea syndrome Qualifiers: Sleep apnea type: unspecified type Qualified Code(s): G47.30 - Sleep apnea , unspecified Is this a current diagnosis for this admission?: Yes Plan: Uses CPAP - Time Time Spent: 30 to 50 Minutes Medications reviewed and adjusted accordingly: Yes Anticipated discharge: Home Within: Other - Inpatient Certification Medical Necessity: Need For IV Fluids, Need for IV Antibiotics Post Hospital Care: D/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 fib currently patient converted to the sinus rhythm Will check a TSH and free T4 Follow with the cardiology Discussed with the patient and the room regarding the patient's current conditions and discussed with the cardiologyWill discuss with the surgery
--- NOTE | 2017-07-19 14:39 | EKG REPORT ---
SEVERITY:- OTHERWISE NORMAL ECG - SINUS TACHYCARDIA : Confirmed by: Last Ashraf MD 19-Jul-2017 14:38:44
--- NOTE | 2017-07-19 14:39 | EKG REPORT ---
SEVERITY:- ABNORMAL ECG - ATRIAL FIBRILLATION, V-RATE [id number] ABNORMAL T, CONSIDER ISCHEMIA, INFERIOR LEADS : Confirmed by: Last Ashraf MD 19-Jul-2017 14:38:56
[2017-07-19] MEDS: PIPERACILLIN SODIUM/TAZOBACTAM 3.375 GM in NORMAL SALINE 100 ML IV SCH ×2 (14:51→20:36)
[2017-07-19 16:23] LABS: HEMATOCRIT 37.4 % (37.9-51.0); MEAN CORPUSCULAR HGB CONC 33.5 g/dL (32.0-36.0); MEAN CORPUSCULAR VOLUME 86 fl (80-97); PLATELET COUNT 143 10^3/uL (150-450); RED BLOOD COUNT 4.33 10^6/uL (4.35-5.55); RED CELL DISTRIBUTION WIDTH 15.3 % (11.5-14.0); WHITE BLOOD COUNT 8.8 10^3/uL (4.0-10.5)
[2017-07-19 16:29] LABS: HEMOGLOBIN 12.6 g/dL (13.5-17.0)
[2017-07-19 16:42] LABS: ALANINE AMINOTRANSFERASE 36 U/L (21-72); ALBUMIN 3.7 g/dL (3.5-5.0); ALKALINE PHOSPHATASE 53 U/L (38-126); ANION GAP 10 (5-19); ASPARTATE AMINO TRANSFERASE 24 U/L (17-59); BILIRUBIN,DIRECT 0.4 mg/dL (0.0-0.4); BILIRUBIN,TOTAL 1.1 mg/dL (0.2-1.3); BLOOD UREA NITROGEN 13 mg/dL (7-20); CALCIUM 8.4 mg/dL (8.4-10.2); CARBON DIOXIDE 20 mmol/L (22-30); CHLORIDE 113 mmol/L (98-107); GLUCOSE 105 mg/dL (75-110); LIPASE 261.7 U/L (23-300); SODIUM 142.8 mmol/L (137-145); TOTAL PROTEIN 6.8 g/dL (6.3-8.2)
[2017-07-19] MEDS: PANTOPRAZOLE SODIUM 40 MG VIAL IV SCH (16:42)
[2017-07-19 17:11] LABS: THYROID STIMULATING HORMONE 0.61 uIU/mL (0.47-4.68)
--- NOTE | 2017-07-19 18:22 | XCELERA REPORT ---
[address] [address] Transthoracic Echocardiogram Report Name: GILBERT MORA JR Age: 56 yrs Gender: Male : 1960 Patient Status: Inpatient Patient Location: ICU^610^A Study Date: 07/19/2017 01:46 PM Height: 69 in Weight: 207 lb BSA: 2.1 m2 Procedure: A complete two-dimensional transthoracic echocardiogram was performed (2D, M-mode, spectral and color flow Doppler). The study was technically good with many images being of high quality. Reason For Study: Atrial fibrillation Ordering Physician: SHAYY PAINTING Performed By: Sofia Sweeney Interpretation Summary The left ventricular ejection fraction is normal. Doppler measurements suggest normal left ventricular diastolic function There is borderline concentric left ventricular hypertrophy. The left ventricle is grossly normal size. No regional wall motion abnormalities noted. The right ventricular systolic function is normal. The right atrium is normal in size The left atrial size is normal. There is a trace to mild amount of mitral regurgitation There is no mitral valve stenosis. No aortic regurgitation is present. There is no aortic valve stenosis There is a trace to mild amount of tricuspid regurgitation There is mild pulmonary hypertension by echo Right ventricular systolic pressure is estimated to be elevated at 30- 40mmHg. There is no pericardial effusion. MMode/2D Measurements & Calculations RVDd: 2.9 cm LVIDd: 4.6 cm FS: 39.5 % Ao root diam: 3.0 cm IVSd: 0.85 cm LVIDs: 2.8 cm EDV(Teich): 96.0 ml LVPWd: 1.00 cm ESV(Teich): 28.7 ml Ao root area: 6.9 cm2 EF(Teich): 70.1 % LA dimension: 3.6 cm Doppler Measurements & Calculations MV E max cassandra: MV P1/2t max cassandra: Ao V2 max: LV V1 max P.6 cm/sec 107.6 cm/sec 152.9 cm/sec 4.2 mmHg MV A max cassandra: MV P1/2t: 52.3 msec Ao max PG: LV V1 max: 77.5 cm/sec 9.4 mmHg 102.7 cm/sec MV E/A: 1.4 MVA(P1/2t): 4.2 cm2 MV dec slope: 602.8 cm/sec2 MV dec time: 0.18 sec PA V2 max: TR max cassandra: 80.9 cm/sec 293.2 cm/sec PA max PG: TR max P.4 mmHg 2.6 mmHg Left Ventricle The left ventricle is grossly normal size. There is borderline concentric left ventricular hypertrophy. The left ventricular ejection fraction is normal. Doppler measurements suggest normal left ventricular diastolic function. No regional wall motion abnormalities noted. Right Ventricle The right ventricle is grossly normal size. There is normal right ventricular wall thickness. The right ventricular systolic function is normal. Atria The right atrium is normal in size. The left atrial size is normal. Interarterial septum not well visualized and not well dopplered. Cannot comment on ASD/PFO presence. Mitral Valve The mitral valve is grossly normal. There is no mitral valve stenosis. There is a trace to mild amount of mitral regurgitation. Aortic Valve The aortic valve is grossly normal. There is no aortic valve stenosis. No aortic regurgitation is present. Tricuspid Valve The tricuspid valve is not well visualized, but is grossly normal. There is no tricuspid stenosis. There is a trace to mild amount of tricuspid regurgitation. There is mild pulmonary hypertension by echo. Right ventricular systolic pressure is estimated to be elevated at 30-40mmHg. Pulmonic Valve The pulmonic valve is not well visualized. Great Vessels The aortic root is not well visualized but is probably normal size. The inferior vena cava appeared normal and decreased > 50% with respiration (RAP 5-10 mmHg). Effusions There is no pericardial effusion. : SHAYY PAINTING > Shayy Painting
[2017-07-20] MEDS: MORPHINE SULFATE 10 MG/ML INJ IV PRN ×2 (00:33→05:21)
[2017-07-20] MEDS: NORMAL SALINE 1000 ML 1,000 ML IV PRN ×2 (00:34→13:20)
[2017-07-20] MEDS: PIPERACILLIN SODIUM/TAZOBACTAM 3.375 GM in NORMAL SALINE 100 ML IV SCH ×4 (03:09→20:52)
[2017-07-20 04:08] LABS: ABSOLUTE BASOPHILS # (AUTO) 0.1 10^3/uL (0.0-0.2); ABSOLUTE EOSINOPHILS # (AUTO) 0.2 10^3/uL (0.0-0.6); ABSOLUTE LYMPHOCYTES (AUTO) 1.6 10^3/uL (0.5-4.7); ABSOLUTE MONOCYTES (AUTO) 0.5 10^3/uL (0.1-1.4); ABSOLUTE NEUT (AUTO) 4.4 10^3/uL (1.7-8.2); BASOPHILS % (AUTO) 0.9 % (0-2); EOSINOPHILS % (AUTO) 2.6 % (0-6); HEMATOCRIT 35.4 % (37.9-51.0); HEMOGLOBIN 12.1 g/dL (13.5-17.0); LYMPHOCYTES % (AUTO) 23.2 % (13-45); MEAN CORPUSCULAR HEMOGLOBIN 29.1 pg (27.0-33.4); MEAN CORPUSCULAR VOLUME 86 fl (80-97); MONOCYTES % (AUTO) 7.4 % (3-13); PLATELET COUNT 131 10^3/uL (150-450); RED BLOOD COUNT 4.14 10^6/uL (4.35-5.55); RED CELL DISTRIBUTION WIDTH 15.2 % (11.5-14.0); SEGMENTED NEUTROPHILS % (AUTO) 65.9 % (42-78); TOTAL CELLS COUNTED % (AUTO) 100 %; WHITE BLOOD COUNT 6.7 10^3/uL (4.0-10.5)
[2017-07-20 04:23] LABS: ALANINE AMINOTRANSFERASE 39 U/L (21-72); ALBUMIN 3.7 g/dL (3.5-5.0); ALKALINE PHOSPHATASE 52 U/L (38-126); ANION GAP 10 (5-19); ASPARTATE AMINO TRANSFERASE 29 U/L (17-59); BILIRUBIN,TOTAL 1.2 mg/dL (0.2-1.3); BLOOD UREA NITROGEN 12 mg/dL (7-20); CALCIUM 8.4 mg/dL (8.4-10.2); CARBON DIOXIDE 22 mmol/L (22-30); CHLORIDE 111 mmol/L (98-107); GLUCOSE 109 mg/dL (75-110); POTASSIUM 3.7 mmol/L (3.6-5.0); SODIUM 142.5 mmol/L (137-145); TOTAL PROTEIN 6.6 g/dL (6.3-8.2)
[2017-07-20] MEDS: PANTOPRAZOLE SODIUM 40 MG VIAL IV SCH ×2 (05:22→17:47)
[2017-07-20] MEDS: FAMOTIDINE INJ/PF 20 MG/2 ML SDV IV SCH ×2 (10:27→21:26)
--- NOTE | 2017-07-20 11:08 | PDOC PROGRESS REPORT ---
Subjective Progress Note for:: 07/20/17 Subjective:: denies any pains. Has flatus. Reason For Visit: ACUTE GASTRIC DISTENTION WITH SMALL BOWEL Physical Exam Vital Signs: Temp Pulse Resp BP Pulse Ox 98.6 F 82 17 121/77 98 07/20/17 08:00 07/20/17 09:51 07/20/17 10:00 07/20/17 08:05 07/20/17 10:00 Intake & Output 07/19/17 07/20/17 07/21/17 06:59 06:59 06:59 Output Total 2125 475 Balance -2125 -475 Weight 94.8 kg Exam: Abdomen soft nontender. Not distended NGT less than 100ccs overnight Results Laboratory Results: 07/20/17 03:50 07/20/17 03:50 07/19/17 07/19/17 07/19/17 16:00 16:00 16:00 WBC 8.8 RBC 4.33 L Hgb 12.6 L D Hct 37.4 L MCV 86 MCH 29.0 MCHC 33.5 RDW 15.3 H Plt Count 143 L Seg Neutrophils % Lymphocytes % Monocytes % Eosinophils % Basophils % Absolute Neutrophils Absolute Lymphocytes Absolute Monocytes Absolute Eosinophils Absolute Basophils Sodium 142.8 Potassium 4.0 Chloride 113 H Carbon Dioxide 20 L Anion Gap 10 BUN 13 Creatinine 0.99 Est GFR ( Amer) > 60 Est GFR (Non-Af Amer) > 60 Glucose 105 Lactic Acid 1.6 Calcium 8.4 Total Bilirubin 1.1 AST 24 ALT 36 Alkaline Phosphatase 53 Total Protein 6.8 Albumin 3.7 Lipase 261.7 TSH Free T4 07/19/17 07/20/17 07/20/17 16:00 03:50 03:50 WBC 6.7 RBC 4.14 L Hgb 12.1 L Hct 35.4 L MCV 86 MCH 29.1 MCHC 34.0 RDW 15.2 H Plt Count 131 L Seg Neutrophils % 65.9 Lymphocytes % 23.2 Monocytes % 7.4 Eosinophils % 2.6 Basophils % 0.9 Absolute Neutrophils 4.4 Absolute Lymphocytes 1.6 Absolute Monocytes 0.5 Absolute Eosinophils 0.2 Absolute Basophils 0.1 Sodium 142.5 Potassium 3.7 Chloride 111 H Carbon Dioxide 22 Anion Gap 10 BUN 12 Creatinine 1.02 Est GFR ( Amer) > 60 Est GFR (Non-Af Amer) > 60 Glucose 109 Lactic Acid Calcium 8.4 Total Bilirubin 1.2 AST 29 ALT 39 Alkaline Phosphatase 52 Total Protein 6.6 Albumin 3.7 Lipase TSH 0.61 Free T4 1.00 07/19/17 09:55 Troponin I < 0.012 Impressions: Abdomen/Pelvis CT 07/19/17 06:09 IMPRESSION: 3.3 cm diameter low grade jejunal small bowel obstruction or ileus. KUB X-Ray 07/19/17 12:11 IMPRESSION: Nonspecific bowel gas pattern Assessment & Plan - Time Time Spent with patient: 15-24 minutes - Plan Summary Plan Summary: D/C NGT Start Clears and gradually increase as tolerated
--- NOTE | 2017-07-20 13:05 | PDOC PROGRESS REPORT ---
Subjective Progress Note for:: 07/20/17 Subjective:: Patient is currently doing much better he is denied any chest pain denied any shortness of the breath Denied any abdominal pain no nausea no vomiting Reason For Visit: ACUTE GASTRIC DISTENTION WITH SMALL BOWEL Physical Exam Vital Signs: Temp Pulse Resp BP Pulse Ox 98.6 F 82 17 121/77 98 07/20/17 08:00 07/20/17 09:51 07/20/17 10:00 07/20/17 08:05 07/20/17 10:00 Intake & Output 07/19/17 07/20/17 07/21/17 06:59 06:59 06:59 Output Total 2125 975 Balance -2125 -975 Weight 94.8 kg General appearance: PRESENT: no acute distress, well-developed, well-nourished Head exam: PRESENT: atraumatic, normocephalic Eye exam: PRESENT: conjunctiva pink, EOMI, PERRLA. ABSENT: scleral icterus Ear exam: PRESENT: normal external ear exam Mouth exam: PRESENT: moist, tongue midline Neck exam: PRESENT: full ROM. ABSENT: carotid bruit, JVD, lymphadenopathy, thyromegaly Respiratory exam: PRESENT: clear to auscultation chelsey Cardiovascular exam: PRESENT: RRR. ABSENT: diastolic murmur, rubs, systolic murmur Pulses: PRESENT: normal dorsalis pedis pul, +2 pedal pulses bilateral Vascular exam: PRESENT: normal capillary refill GI/Abdominal exam: PRESENT: normal bowel sounds, soft. ABSENT: distended, guarding, mass, organolmegaly, rebound, tenderness Rectal exam: PRESENT: deferred Extremities exam: ABSENT: pedal edema Neurological exam: PRESENT: alert, awake, oriented to person, oriented to place , oriented to time, oriented to situation, CN II-XII grossly intact. ABSENT: motor sensory deficit Psychiatric exam: PRESENT: appropriate affect, normal mood. ABSENT: homicidal ideation, suicidal ideation Skin exam: PRESENT: dry, intact, warm. ABSENT: cyanosis, rash Results Laboratory Results: 07/20/17 03:50 07/20/17 03:50 07/19/17 07/19/17 07/19/17 16:00 16:00 16:00 WBC 8.8 RBC 4.33 L Hgb 12.6 L D Hct 37.4 L MCV 86 MCH 29.0 MCHC 33.5 RDW 15.3 H Plt Count 143 L Seg Neutrophils % Lymphocytes % Monocytes % Eosinophils % Basophils % Absolute Neutrophils Absolute Lymphocytes Absolute Monocytes Absolute Eosinophils Absolute Basophils Sodium 142.8 Potassium 4.0 Chloride 113 H Carbon Dioxide 20 L Anion Gap 10 BUN 13 Creatinine 0.99 Est GFR ( Amer) > 60 Est GFR (Non-Af Amer) > 60 Glucose 105 Lactic Acid 1.6 Calcium 8.4 Total Bilirubin 1.1 AST 24 ALT 36 Alkaline Phosphatase 53 Total Protein 6.8 Albumin 3.7 Lipase 261.7 TSH Free T4 07/19/17 07/20/17 07/20/17 16:00 03:50 03:50 WBC 6.7 RBC 4.14 L Hgb 12.1 L Hct 35.4 L MCV 86 MCH 29.1 MCHC 34.0 RDW 15.2 H Plt Count 131 L Seg Neutrophils % 65.9 Lymphocytes % 23.2 Monocytes % 7.4 Eosinophils % 2.6 Basophils % 0.9 Absolute Neutrophils 4.4 Absolute Lymphocytes 1.6 Absolute Monocytes 0.5 Absolute Eosinophils 0.2 Absolute Basophils 0.1 Sodium 142.5 Potassium 3.7 Chloride 111 H Carbon Dioxide 22 Anion Gap 10 BUN 12 Creatinine 1.02 Est GFR ( Amer) > 60 Est GFR (Non-Af Amer) > 60 Glucose 109 Lactic Acid Calcium 8.4 Total Bilirubin 1.2 AST 29 ALT 39 Alkaline Phosphatase 52 Total Protein 6.6 Albumin 3.7 Lipase TSH 0.61 Free T4 1.00 07/19/17 09:55 Troponin I < 0.012 Impressions: Abdomen/Pelvis CT 07/19/17 06:09 IMPRESSION: 3.3 cm diameter low grade jejunal small bowel obstruction or ileus. KUB X-Ray 07/19/17 12:11 IMPRESSION: Nonspecific bowel gas pattern Assessment & Plan - Diagnosis (1) Sepsis Qualifiers: Sepsis type: sepsis due to unspecified organism Qualified Code(s): A41.9 - Sepsis, unspecified organism Is this a current diagnosis for this admission?: Yes Plan: Currently all resolving (2) Acute abdomen Is this a current diagnosis for this admission?: Yes Plan: Follow-up with surgery (3) Atrial fibrillation with rapid ventricular response Is this a current diagnosis for this admission?: Yes Plan: Currently all sinus rhythm follow with the cardiology outpatient (4) Diabetes Qualifiers: Diabetes mellitus type: type 2 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 restart the all the p.o. medications and the discharge (5) Gastroesophageal reflux disease Qualifiers: Esophagitis presence: esophagitis presence not specified Qualified Code(s) : K21.9 - Gastro-esophageal reflux disease without esophagitis Is this a current diagnosis for this admission?: Yes Plan: We will put the Protonix 40 mg IV twice a day (6) Hyperlipidemia Qualifiers: Hyperlipidemia type: unspecified Qualified Code(s): E78.5 - Hyperlipidemia , unspecified Is this a current diagnosis for this admission?: Yes Plan: Currently hold the Zetia (7) Hypertension Qualifiers: Hypertension type: essential hypertension Qualified Code(s): I10 - Essential (primary) hypertension Is this a current diagnosis for this admission?: Yes (8) Sleep apnea syndrome Qualifiers: Sleep apnea type: unspecified type Qualified Code(s): G47.30 - Sleep apnea , unspecified Is this a current diagnosis for this admission?: Yes Plan: Uses CPAP - Time Time Spent with patient: 15-24 minutes Medications reviewed and adjusted accordingly: Yes Anticipated discharge: Home Within: Other - Inpatient Certification Medical Necessity: Need Close Monitoring Due to Risk of Patient Decompensation, Need for IV Antibiotics 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 intake and the patient's tolerated restart the all the p.o. medications and follow outpatient in 1 weekAnd hold the Bydureon on the discharge
[2017-07-20] MEDS ORDERED: ESCITALOPRAM OXALATE 10 MG TABLET PO ONE (20:00)
[2017-07-21] MEDS: PIPERACILLIN SODIUM/TAZOBACTAM 3.375 GM in NORMAL SALINE 100 ML IV SCH ×2 (02:13→09:15)
[2017-07-21 06:02] LABS: ANION GAP 11 (5-19); BLOOD UREA NITROGEN 10 mg/dL (7-20); CALCIUM 9.2 mg/dL (8.4-10.2); CARBON DIOXIDE 24 mmol/L (22-30); CHLORIDE 107 mmol/L (98-107); GLUCOSE 101 mg/dL (75-110); POTASSIUM 3.8 mmol/L (3.6-5.0); SODIUM 142.1 mmol/L (137-145)
[2017-07-21] MEDS: PANTOPRAZOLE SODIUM 40 MG VIAL IV SCH (06:25)
[2017-07-21] MEDS: FAMOTIDINE INJ/PF 20 MG/2 ML SDV IV SCH (09:15)
[2017-07-21] MEDS ORDERED: ESCITALOPRAM OXALATE 10 MG TABLET PO SCH (10:00)
--- NOTE | 2017-07-21 10:13 | PDOC PROGRESS REPORT ---
Subjective Progress Note for:: 07/21/17 Subjective:: Patient is currently doing well Patient's tolerate at the p.o. intake very well Reason For Visit: ACUTE GASTRIC DISTENTION WITH SMALL BOWEL Physical Exam Vital Signs: Temp Pulse Resp BP Pulse Ox 98.3 F 73 17 143/81 H 94 07/21/17 07:42 07/21/17 07:42 07/21/17 07:42 07/21/17 07:42 07/21/17 07:42 Intake & Output 07/20/17 07/21/17 07/22/17 06:59 06:59 06:59 Intake Total 1632 Output Total 2125 975 Balance -5 657 Weight 94.8 kg 95.6 kg General appearance: PRESENT: no acute distress, well-developed, well-nourished Head exam: PRESENT: atraumatic, normocephalic Eye exam: PRESENT: conjunctiva pink, EOMI, PERRLA. ABSENT: scleral icterus Ear exam: PRESENT: normal external ear exam Mouth exam: PRESENT: moist, tongue midline Neck exam: PRESENT: full ROM. ABSENT: carotid bruit, JVD, lymphadenopathy, thyromegaly Respiratory exam: PRESENT: clear to auscultation chelsey Cardiovascular exam: PRESENT: RRR. ABSENT: diastolic murmur, rubs, systolic murmur Pulses: PRESENT: normal dorsalis pedis pul, +2 pedal pulses bilateral Vascular exam: PRESENT: normal capillary refill GI/Abdominal exam: PRESENT: normal bowel sounds, soft. ABSENT: distended, guarding, mass, organolmegaly, rebound, tenderness Rectal exam: PRESENT: deferred Musculoskeletal exam: PRESENT: ambulatory Neurological exam: PRESENT: alert, awake, oriented to person, oriented to place , oriented to time, oriented to situation, CN II-XII grossly intact. ABSENT: motor sensory deficit Psychiatric exam: PRESENT: appropriate affect, normal mood. ABSENT: homicidal ideation, suicidal ideation Skin exam: PRESENT: dry, intact, warm. ABSENT: cyanosis, rash Results Laboratory Results: 07/20/17 03:50 07/21/17 04:46 07/21/17 04:46 Sodium 142.1 Potassium 3.8 Chloride 107 Carbon Dioxide 24 Anion Gap 11 BUN 10 Creatinine 1.14 Est GFR ( Amer) > 60 Est GFR (Non-Af Amer) > 60 Glucose 101 Calcium 9.2 07/19/17 09:55 Troponin I < 0.012 Impressions: Abdomen/Pelvis CT 07/19/17 06:09 IMPRESSION: 3.3 cm diameter low grade jejunal small bowel obstruction or ileus. KUB X-Ray 07/19/17 12:11 IMPRESSION: Nonspecific bowel gas pattern Assessment & Plan - Diagnosis (1) Sepsis Qualifiers: Sepsis type: sepsis due to unspecified organism Qualified Code(s): A41.9 - Sepsis, unspecified organism Is this a current diagnosis for this admission?: Yes Plan: Currently all resolving (2) Acute abdomen Is this a current diagnosis for this admission?: Yes Plan: Follow-up with surgery (3) Atrial fibrillation with rapid ventricular response Is this a current diagnosis for this admission?: Yes Plan: Currently all sinus rhythm follow with the cardiology outpatient (4) Diabetes Qualifiers: Diabetes mellitus type: type 2 Diabetes mellitus nursing home insulin use: unspecified nursing home insulin use status Diabetes mellitus complication status : without complication Qualified Code(s): E11.9 - Type 2 diabetes mellitus without complications Is this a current diagnosis for this admission?: Yes Plan: Once the patient's daughter the p.o. restart the all the p.o. medications and the discharge (5) Gastroesophageal reflux disease Qualifiers: Esophagitis presence: esophagitis presence not specified Qualified Code(s) : K21.9 - Gastro-esophageal reflux disease without esophagitis Is this a current diagnosis for this admission?: Yes Plan: We will put the Protonix 40 mg IV twice a day (6) Hyperlipidemia Qualifiers: Hyperlipidemia type: unspecified Qualified Code(s): E78.5 - Hyperlipidemia , unspecified Is this a current diagnosis for this admission?: Yes Plan: Currently hold the Zetia (7) Hypertension Qualifiers: Hypertension type: essential hypertension Qualified Code(s): I10 - Essential (primary) hypertension Is this a current diagnosis for this admission?: Yes (8) Sleep apnea syndrome Qualifiers: Sleep apnea type: unspecified type Qualified Code(s): G47.30 - Sleep apnea , unspecified Is this a current diagnosis for this admission?: Yes - Time Time Spent with patient: 15-24 minutes - Inpatient Certification Medical Necessity: Need for IV Antibiotics 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
--- NOTE | 2017-07-21 12:32 | PDOC PROGRESS REPORT ---
Subjective Progress Note for:: 07/20/17 Subjective:: Patient seems to be doing better with gradual improvement. Pt is denying any chest arm or neck discomfort. Patient denying any PND, orthopnea. Patient denied any sustained palpitations, dizziness, syncope, near syncope. Patient denying any fever chills. Patient denying any other significant discomfort. Patient is maintaining sinus rhythm. Review of systems: Rest review of systems negative. Medications: Medications have been reviewed. Reason For Visit: ACUTE GASTRIC DISTENTION WITH SMALL BOWEL Physical Exam Vital Signs: Temp Pulse Resp BP Pulse Ox 98.6 F 82 17 121/77 98 07/20/17 08:00 07/20/17 09:51 07/20/17 10:00 07/20/17 08:05 07/20/17 10:00 Intake & Output 07/19/17 07/20/17 07/21/17 06:59 06:59 06:59 Output Total 2125 975 Balance -2125 -975 Weight 94.8 kg Exam: GENERAL: well-nourished and in no acute distress. Alert and oriented x3 HEAD: Atraumatic, normocephalic. EYES: Pupils equal round and reactive to light, extraocular movements intact, sclera anicteric, conjunctiva are normal. ENT: TMs normal, nares patent, oropharynx clear without exudates. Moist mucous membranes. No oral ulcerations or bleeding gums noted NECK: supple without lymphadenopathy. Trachea is central. No cervical or axillary lymphadenopathy noted. Carotids are 2+, JVD WNL LUNGS: Respiration seems nonlabored, no significant accessory muscle action noted. Breath sounds clear to auscultation bilaterally and equal noted. No wheezes rales or rhonchi noted. No significant dullness noted on percussion. CHEST: Palpation of the chest wall shows no significant chest wall tenderness. No other significant abnormalities noted. HEART: [place] [employer]IVER, No PSH, 1/6 CHANCE aortic area, 1/6 francisco systolic murmur mitral area, no rubs, no gallops. ABDOMEN: Soft, no significant tenderness appreciated, normoactive bowel sounds. No guarding, no rebound. No rigidity noted . No masses appreciated. EXTREMITIES: Pedal pulses are 1-2+, no calf tenderness noted. No clubbing or cyanosis. Negative pedal edema noted NEUROLOGICAL: Focused neurological exam showed no significant neurologic deficit. Normal speech, no focal weakness appreciated. PSYCH: Normal mood, normal affect. Judgment and insight within normal limits. SKIN: No significant ecchymosis, skin is noted to be warm. MUSCULOSKELETAL EXAM: No significant acute joint swelling noted. Results Laboratory Results: 07/20/17 03:50 07/20/17 03:50 07/19/17 07/19/17 07/19/17 16:00 16:00 16:00 WBC 8.8 RBC 4.33 L Hgb 12.6 L D Hct 37.4 L MCV 86 MCH 29.0 MCHC 33.5 RDW 15.3 H Plt Count 143 L Seg Neutrophils % Lymphocytes % Monocytes % Eosinophils % Basophils % Absolute Neutrophils Absolute Lymphocytes Absolute Monocytes Absolute Eosinophils Absolute Basophils Sodium 142.8 Potassium 4.0 Chloride 113 H Carbon Dioxide 20 L Anion Gap 10 BUN 13 Creatinine 0.99 Est GFR ( Amer) > 60 Est GFR (Non-Af Amer) > 60 Glucose 105 Lactic Acid 1.6 Calcium 8.4 Total Bilirubin 1.1 AST 24 ALT 36 Alkaline Phosphatase 53 Total Protein 6.8 Albumin 3.7 Lipase 261.7 TSH Free T4 07/19/17 07/20/17 07/20/17 16:00 03:50 03:50 WBC 6.7 RBC 4.14 L Hgb 12.1 L Hct 35.4 L MCV 86 MCH 29.1 MCHC 34.0 RDW 15.2 H Plt Count 131 L Seg Neutrophils % 65.9 Lymphocytes % 23.2 Monocytes % 7.4 Eosinophils % 2.6 Basophils % 0.9 Absolute Neutrophils 4.4 Absolute Lymphocytes 1.6 Absolute Monocytes 0.5 Absolute Eosinophils 0.2 Absolute Basophils 0.1 Sodium 142.5 Potassium 3.7 Chloride 111 H Carbon Dioxide 22 Anion Gap 10 BUN 12 Creatinine 1.02 Est GFR ( Amer) > 60 Est GFR (Non-Af Amer) > 60 Glucose 109 Lactic Acid Calcium 8.4 Total Bilirubin 1.2 AST 29 ALT 39 Alkaline Phosphatase 52 Total Protein 6.6 Albumin 3.7 Lipase TSH 0.61 Free T4 1.00 07/19/17 09:55 Troponin I < 0.012 EKG Comments: Telemetry strip shows sinus rhythm without any recurrence of atrial fibrillation Impressions: Abdomen/Pelvis CT 07/19/17 06:09 IMPRESSION: 3.3 cm diameter low grade jejunal small bowel obstruction or ileus. KUB X-Ray 07/19/17 12:11 IMPRESSION: Nonspecific bowel gas pattern Assessment & Plan - Diagnosis (1) Atrial fibrillation with rapid ventricular response Is this a current diagnosis for this admission?: Yes (2) Acute abdomen Is this a current diagnosis for this admission?: Yes (3) Hypertension Qualifiers: Hypertension type: essential hypertension Qualified Code(s): I10 - Essential (primary) hypertension Is this a current diagnosis for this admission?: Yes (4) Diabetes Qualifiers: Diabetes mellitus type: type 2 Diabetes mellitus fdc insulin use: unspecified fdc insulin use status Diabetes mellitus complication status : without complication Qualified Code(s): E11.9 - Type 2 diabetes mellitus without complications Is this a current diagnosis for this admission?: Yes (5) Sleep apnea syndrome Qualifiers: Sleep apnea type: unspecified type Qualified Code(s): G47.30 - Sleep apnea , unspecified Is this a current diagnosis for this admission?: Yes (6) Gastroesophageal reflux disease Qualifiers: Esophagitis presence: esophagitis presence not specified Qualified Code(s) : K21.9 - Gastro-esophageal reflux disease without esophagitis Is this a current diagnosis for this admission?: Yes (7) Hyperlipidemia Qualifiers: Hyperlipidemia type: unspecified Qualified Code(s): E78.5 - Hyperlipidemia , unspecified Is this a current diagnosis for this admission?: Yes - Notes Notes: Atrial fibrillation with rapid ventricular response: This was transient. Patient noted to be in sinus rhythm. Will switch patient to p.o. metoprolol succinate. This will be allowed when patient allowed to take p.o. Hypertension: Blood pressure is reasonably well controlled. Diabetes: Being adequately managed by cashier general. Gastroesophageal reflux: Patient gives a history of it. Recommend IV proton pump inhibitor. Dyslipidemia: Continue ezetimibe when allowed to p.o. Patient cleared for surgery from cardiac standpoint at this point as patient has no significant EKG changes of ischemic nature. Patient also not in CHF. And patient noted to be fairly active prior to his acute episode. It seems patient has responded nicely to NG tube suction. Patient may not go for surgery. Recommend starting patient home medications. - Time Time with patient: 15-25 minutes - CODE STATUS was discussed, patient remains full code. Surrogate decision-maker patient's spouse. Multiple medical problems were addressed. More than 50% of the time spent coordinating care, discussing management plans with involved caregivers. Management plans discussed with involved personnels. Medical decision making was of moderate to high complexity, patient's has multiple comorbidities. Medications reviewed and adjusted accordingly: Yes
--- NOTE | 2017-07-21 12:36 | PDOC PROGRESS REPORT ---
Subjective Progress Note for:: 07/21/17 Subjective:: Patient seems to be doing significantly better. He tolerated p.o. food and also had bowel movement patient is suspected to be discharged.. Pt is denying any chest arm or neck discomfort. Patient denying any PND, orthopnea. Patient denied any sustained palpitations, dizziness, syncope, near syncope. Patient denying any fever chills. Patient denying any other significant discomfort. Patient is maintaining sinus rhythm. Review of systems: Rest review of systems negative. Medications: Medications have been reviewed. Reason For Visit: ACUTE GASTRIC DISTENTION WITH SMALL BOWEL Physical Exam Vital Signs: Temp Pulse Resp BP Pulse Ox 98.4 F 75 17 147/85 H 97 07/21/17 11:55 07/21/17 11:55 07/21/17 11:55 07/21/17 11:55 07/21/17 11:55 Intake & Output 07/20/17 07/21/17 07/22/17 06:59 06:59 06:59 Intake Total 1632 Output Total 2125 975 Balance -2125 657 Weight 94.8 kg 95.6 kg Exam: GENERAL: well-nourished and in no acute distress. Alert and oriented x3 HEAD: Atraumatic, normocephalic. EYES: Pupils equal round and reactive to light, extraocular movements intact, sclera anicteric, conjunctiva are normal. ENT: TMs normal, nares patent, oropharynx clear without exudates. Moist mucous membranes. No oral ulcerations or bleeding gums noted NECK: supple without lymphadenopathy. Trachea is central. No cervical or axillary lymphadenopathy noted. Carotids are 2+, JVD WNL LUNGS: Respiration seems nonlabored, no significant accessory muscle action noted. Breath sounds clear to auscultation bilaterally and equal noted. No wheezes rales or rhonchi noted. No significant dullness noted on percussion. CHEST: Palpation of the chest wall shows no significant chest wall tenderness. No other significant abnormalities noted. 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 ABDOMEN: Soft, no significant tenderness appreciated, normoactive bowel sounds. No guarding, no rebound. No rigidity noted . No masses appreciated. EXTREMITIES: Pedal pulses are 1-2+, no calf tenderness noted. No clubbing or cyanosis. Negative pedal edema noted NEUROLOGICAL: Focused neurological exam showed no significant neurologic deficit. Normal speech, no focal weakness appreciated. PSYCH: Normal mood, normal affect. Judgment and insight within normal limits. SKIN: No significant ecchymosis, skin is noted to be warm. MUSCULOSKELETAL EXAM: No significant acute joint swelling noted. Results Laboratory Results: 07/20/17 03:50 07/21/17 04:46 07/21/17 04:46 Sodium 142.1 Potassium 3.8 Chloride 107 Carbon Dioxide 24 Anion Gap 11 BUN 10 Creatinine 1.14 Est GFR ( Amer) > 60 Est GFR (Non-Af Amer) > 60 Glucose 101 Calcium 9.2 07/19/17 09:55 Troponin I < 0.012 Impressions: Abdomen/Pelvis CT 07/19/17 06:09 IMPRESSION: 3.3 cm diameter low grade jejunal small bowel obstruction or ileus. 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 insulin use: unspecified longterm insulin use status Diabetes mellitus complication status : without complication Qualified Code(s): E11.9 - Type 2 diabetes mellitus without complications Is this a current diagnosis for this admission?: Yes (5) Sleep apnea syndrome Qualifiers: Sleep apnea type: unspecified type Qualified Code(s): G47.30 - Sleep apnea , unspecified Is this a current diagnosis for this admission?: Yes (6) Gastroesophageal reflux disease Qualifiers: Esophagitis presence: esophagitis presence not specified Qualified Code(s) : K21.9 - Gastro-esophageal reflux disease without esophagitis Is this a current diagnosis for this admission?: Yes (7) Hyperlipidemia Qualifiers: Hyperlipidemia type: unspecified Qualified Code(s): E78.5 - Hyperlipidemia , unspecified Is this a current diagnosis for this admission?: Yes - Notes Notes: Atrial fibrillation with rapid ventricular response: This was transient. Patient noted to be in sinus rhythm. Recommend metoprolol succinate 25 mg p.o. twice daily. Hypertension: Blood pressure is reasonably well controlled. Diabetes: Being adequately managed by caster operator. Gastroesophageal reflux: Patient gives a history of it. Recommend IV proton pump inhibitor. Dyslipidemia: Resume home antilipid therapy. Acute abdomen: Resolved. No need for surgery. Acute gastritis, transient small bowel obstruction: This has resolved. Patient is suspected to be discharged home. Sleep apnea syndrome: Patient advised follow-up for proper management of sleep apnea syndrome which can reduce recurrence of atrial fibrillation and also reduce recurrence of reflux. - Time Time with patient: 15-25 minutes - CODE STATUS was discussed, patient remains full code. Surrogate decision-maker unchanged. Multiple medical problems were addressed. More than 50% of the time spent coordinating care, discussing management plans with involved caregivers. Management plans discussed with involved personnels. Medical decision making was of moderate to high complexity , patient's has multiple comorbidities. Medications reviewed and adjusted accordingly: Yes
[2017-07-21] MEDS ORDERED: METOPROLOL SUCCINATE 25 MG TAB.SR.24H PO ONE (12:45)
[2017-07-21 13:15] VITALS: BP 130/76
--- NOTE | 2017-07-21 21:19 | DISCHARGE SUMMARY E ---
Discharge Summary NAME: GILBERT MORA : 1960 AGE: 56Y ADMITTED: 07/18/2017 DISCHARGED: 07/21/2017 FINAL DIAGNOSIS: 1. Small bowel obstruction with acute gastric distention. 2. Diabetes mellitus. 3. Transient atrial fibrillation. SUMMARY: This is a 56-year-old male who claimed he had binge eating [place] food cooked by his [id number] who was just visiting from [facility], just prior to having abdominal pains with nausea and vomiting. He went to the emergency room where a CT scan of the abdomen revealed small bowel obstruction with dilated stomach. NG tube was inserted. His lactic acid was 6.1 and his white count was up to 24,000. His blood sugars evaluated in the 300s. He was originally given at least 5 liters of fluid with decrease in lactic acid to 3 and then eventually to 1.6. He had a transient episode of atrial fibrillation and was seen by hospitalist and by superintendent colliery, who eventually placed him on Toprol 25 mg p.o. twice a day on discharge. The patient stayed in the ICU for at least 24 hours where he gradually improved with the NG tube and hydration. His pain subsided immediately almost after placement of NG tube and hydration. His white count decreased to 8000 several hours after admission in the intensive care unit. His heart rate went down from the 140s into the 90s. He was then transferred out to the [facility] where he continued to improve. He had a bowel movement and passage of flatus with practical disappearance of the abdominal pains and marked decrease in abdominal distention. The NG tube was uneventfully removed the next day in the ICU. The patient then gradually tolerated clear liquids, advanced to soft diet on the day of discharge. The patient was then discharged improved on 07/21/17 with the above final diagnoses. The patient also seen by his primary physician, Dr. Abhishek Rivas, who will see him on Monday, 2 days from now, in order to arrange for upper endoscopy. He was continued on all his medications together with Toprol 25 mg p.o. twice a day for at least the next few weeks. He was also advised not to do any binge eating, just take soft diet for the next week or so or until seen by the resource director. DICTATING PHYSICIAN: CÉSAR AMIN M.D. [id number] PHY#: [id number] ID: [id number] JOB#: [id number] ACCT: [id number] cc:CÉSAR AMIN M.D. >
[2017-07-21] MEDS ORDERED: METOPROLOL SUCCINATE 25 MG TAB.SR.24H PO SCH (22:00)
--- NOTE | 2017-08-01 18:34 | PDOC H&P ---
History of Present Illness Admission Date/PCP: 07/19/17 08:05 Patient complains of: Abdominal pains with nausea,vomiting,diarrhea History of Present Illness: Suddenly c/o of abdominal pains associated with N/V and diarrhea. CT scan abdomen showed partial small bowel obstruction. Has history of DM Past Medical History Cardiac Medical History: Reports: Hyperlipidema, Hypertension Denies: None, Atrial Fibrillation, Congestive Heart Failure, Coronary Artery Disease, DVT, Myocardial Infarction, Peripheral Vascular Disease, Pulmonary Embolism, Heart Murmur, Other Pulmonary Medical History: Denies: None, Asthma, Bronchitis, Chronic Obstructive Pulmonary Disease (COPD ), Intubation, Pneumonia, Respiratory Failure, Sleep Apnea, Tuberculosis, Other EENT Medical History: Denies: None, Eyes, Ears, Nose, Throat Neurological Medical History: Denies: None, Migraine, Seizures, Other Endocrine Medical History: Reports: Diabetes Mellitus Type 2 Denies: None, Diabetes Mellitus Type 1, Hyperthyroidism, Hypothyroidism, Other Malignancy Medical History: Denies: None, Bone Cancer, Brain Cancer, Colorectal Cancer, Leukemia, Liver Cancer, Lung Cancer, Lymphoma, Pancreatic Cancer, Renal (Kidney) Cancer, Skin Cancer, Other GI Medical History: Reports: Gastroesophageal Reflux Disease Musculoskeltal Medical History: Denies: None, Arthritis, Fibromyalgia, Gout, Other Psychiatric Medical History: Reports: Depression, General Anxiety Disorder Past Surgical History Past Surgical History: Reports: Orthopedic Surgery - Right Knee x3, Other - Fundoplication Incisional hernia repair Social History Lives with: Family Smoking Status: Current Some Day Smoker Cigars Per Day: 1 Frequency of Alcohol Use: Social Hx Recreational Drug Use: No Drugs: None Hx Prescription Drug Abuse: No - Advance Directive Resuscitation Status: Full Code Family History Family History: Reviewed & Not Pertinent, Hypertension Parental Family History Reviewed: Yes - hypertension Children Family History Reviewed: No Sibling(s) Family History Reviewed.: No Medication/Allergy Home Medications: Cyclobenzaprine HCl [Flexeril 10 mg Tablet] 10 mg PO DAILYP PRN 07/19/17 Empagliflozin [Jardiance] 25 mg PO QAM 07/19/17 Escitalopram Oxalate [Lexapro 10 mg Tablet] 10 mg PO DAILY 07/19/17 Exenatide Microspheres [Bydureon Pen] 2 mg SQ MO@1000 07/19/17 Ezetimibe [Zetia 10 mg Tablet] 10 mg PO DAILY 07/19/17 Levocetirizine Dihydrochloride [Xyzal] 5 mg PO DAILY 07/19/17 Levothyroxine Sodium [Synthroid 0.075 mg Tablet] 0.075 mg PO Q6AM 07/19/17 Metformin HCl [Glucophage XR 500 mg Tablet] 1,000 mg PO BIDBS 07/19/17 Rabeprazole Sodium [Aciphex] 20 mg PO QAM 07/19/17 Ramipril [Altace] 5 mg PO DAILY 07/19/17 Sildenafil Citrate [Viagra] 50 mg PO ASDIR PRN 07/19/17 Valacyclovir HCl [Valtrex] 500 mg PO DAILYP PRN 07/19/17 Allergies/Adverse Reactions: No Known Allergies Allergy (Verified 07/19/17 05:35) Review of Systems Constitutional: PRESENT: weakness Eyes: PRESENT: other - no visual/hearing changes Cardiovascular: PRESENT: other - no chest pains,cough Gastrointestinal: PRESENT: abdominal pain, diarrhea, nausea, vomiting Genitourinary: PRESENT: other - no dysuria Neurological: PRESENT: other - no seizures Endocrine: PRESENT: other - no polyuria Physical Exam Vital Signs: Temp Pulse Resp BP Pulse Ox 98.4 F 75 17 130/76 H 97 07/21/17 13:14 07/21/17 13:14 07/21/17 13:14 07/21/17 13:14 07/21/17 13:14 General appearance: PRESENT: mild distress Head exam: PRESENT: atraumatic Eye exam: PRESENT: conjunctiva pink Mouth exam: PRESENT: moist Neck exam: PRESENT: full ROM Respiratory exam: PRESENT: clear to auscultation che[place] Cardiovascular exam: PRESENT: RRR Pulses: PRESENT: normal radial pulses Vascular exam: PRESENT: normal capillary refill GI/Abdominal exam: PRESENT: distended, soft, tenderness Rectal exam: PRESENT: deferred Extremities exam: PRESENT: full ROM Musculoskeletal exam: PRESENT: ambulatory Neurological exam: PRESENT: alert, oriented to person, oriented to place, oriented to time, oriented to situation Psychiatric exam: PRESENT: appropriate affect Skin exam: PRESENT: normal color, warm Results Laboratory Results: 07/20/17 03:50 07/21/17 04:46 07/19/17 09:55 Troponin I < 0.012 Impressions: Abdomen/Pelvis CT 07/19/17 06:09 IMPRESSION: 3.3 cm diameter low grade jejunal small bowel obstruction or ileus. KUB X-Ray 07/19/17 12:11 IMPRESSION: Nonspecific bowel gas pattern Assessment & Plan - Diagnosis (1) Atrial fibrillation with rapid ventricular response Is this a current diagnosis for this admission?: Yes (2) Diabetes Qualifiers: Diabetes mellitus type: type 2 Diabetes mellitus prison insulin use: unspecified prison insulin use status Diabetes mellitus complication status : without complication Qualified Code(s): E11.9 - Type 2 diabetes mellitus without complications Is this a current diagnosis for this admission?: Yes - Time Time Spent: 30 to 50 Minutes - Plan Summary Plan Summary: NGT NPO Hydrate Serial evaluation Cardiology consult for A-Fib Medical consult for DM
== END 2017-07-21 13:43 | disposition home or self-care (01) | DRG 392 ==
LOC: ER 05:34 → UNDOADMIN 08:05 → EH 08:05 → ICU 10:56 → 3W 07-20 21:42
PROVIDERS: ADMIT Surgery; ATTEND Surgery
PROC: 0D9670Z Drainage of Stomach with Drainage Device, Via Natural or Artificial Opening (ICD-10-PCS; principal; 2017-07-19)
DX: K31.0 Acute dilatation of stomach (principal); E11.9 Type 2 diabetes mellitus without complications; I48.91 Unspecified atrial fibrillation; E03.9 Hypothyroidism, unspecified; F32.9 Major depressive disorder, single episode, unspecified; I10 Essential (primary) hypertension; E78.00 Pure hypercholesterolemia, unspecified; K21.9 Gastro-esophageal reflux disease without esophagitis; F41.1 Generalized anxiety disorder; F17.210 Nicotine dependence, cigarettes, uncomplicated; G47.30 Sleep apnea, unspecified; R00.0 Tachycardia, unspecified; E66.9 Obesity, unspecified; Z68.31 Body mass index [BMI] 31.0-31.9, adult; Z79.899 Other long term (current) drug therapy; Z82.49 Family history of ischemic heart disease and other diseases of the circulatory system
CPT/HCPCS: 36415; 74018; 74177; 80048; 80053; 80076; 82550; 82553; 82962; 83605; 83690; 84439; 84443; 84484; 85025; 85027; 85610; 87040; 93005; 93010; 93306; 96365; 96375; 99291; J0780; J2270; J2405; J2543; J2765; J3370; J3490; J7030; S0028; S0164